=== PATIENT | female | born 1970 | race Caucasian/White ===

== ENCOUNTER 2016-10-14 12:10 | Emergency (ER) | payer OTHER ==
[2016-10-14] MEDS ORDERED: IOPAMIDOL 300 (61%) 150 ML VIAL IV ONE (12:11)
[2016-10-14] MEDS ORDERED: ONDANSETRON 4 MG/2ML 2 ML VIAL ONE (13:38)
[2016-10-14] MEDS ORDERED: LACTATED RINGERS 1,000 ML ONE (13:38)
[2016-10-14] MEDS ORDERED: MORPHINE SULFATE 4 MG/ML SYRINGE ONE (13:38)
[2016-10-14 13:51] LABS: SPECIFIC GRAVITY 1.025 (1.001-1.030); URINE APPEARANCE CLEAR; URINE BILIRUBIN NEGATIVE (NEGATIVE); URINE BLOOD 1+ (NEGATIVE); URINE COLOR DARK YELLOW; URINE GLUCOSE (UA) NEGATIVE (NEGATIVE); URINE LEUKOCYTE ESTERASE NEGATIVE (NEGATIVE); URINE NITRITE NEGATIVE (NEGATIVE); URINE PROTEIN NEGATIVE (NEGATIVE); URINE UROBILINOGEN NORMAL (0-1 mg/dl)
[2016-10-14 13:52] LABS: ABSOLUTE NEUTROPHIL COUNT 13.1 K/mm3 (1.8-7.7); BASO % 0.3 % (0.2-1.0); EOS % 0.1 % (0.9-2.9); HEMATOCRIT 40.7 % (37.0-47.0); HEMOGLOBIN 13.9 gm/l (12.0-16.0); IMM NEUT # 0.1 K/mm3 (0-0.2); IMM NEUT% 0.3 % (0-1); LYMPH # 0.7 (1.0-4.8); LYMPH % 4.8 % (15-45); MEAN CELL VOLUME 89.6 fl (81.0-99.0); MEAN CORPUSCULAR HEMOGLOBIN 30.6 pg (27.0-31.0); MEAN CORPUSCULAR HGB CONC 34.2 g/dl (33.0-37.0); MEAN PLATELET VOLUME 10.4 fl (7.4-10.4); MONO # 0.5 (0.0-0.8); MONO % 3.4 % (4-12); NEUT % 91.1 % (43-75); PLATELET COUNT 333 K/mm3 (130-400); RED CELL DISTRIBUTION WIDTH 11.8 % (11.5-14.5)
[2016-10-14 14:01] LABS: ALB/GLOB RATIO 1.4 (>1.0); CALCIUM 8.9 mg/dL (8.6-10.3)
[2016-10-14 14:04] LABS: URINE BACTERIA FEW; URINE WBC NEG /hpf
--- NOTE | 2016-10-14 14:27 | US ---
ABDOMINAL-LIMITED 10/14/2016 13:46 COMPARISON: None HISTORY: Epigastric pain and nausea since 07:00 today FINDINGS: Gall bladder: Normal, length 7.8 cm, all wall thickness 2.9 mm, without stones or sludge. Common hepatic duct: 2.9 mm. Common bile duct: 3.2 mm. IMPRESSION: 1. Normal study. The report was sent to the emergency department [facility] record system 10/14/2016 at 14:29
[2016-10-14 15:26] LABS: BAND 0 % (0-10); EOSINOPHIL 0 % (1-3); LYMPHOCYTE 9 % (15-45); MONOCYTE 3 % (4-12); NEUTROPHILS 88 % (43-75); TOTAL CELLS COUNTED 100
[2016-10-14 15:27] LABS: BASOPHIL 0 % (0-1); PLATELET ESTIMATE NORMAL (NORMAL)
--- NOTE | 2016-10-14 15:59 | CT ---
ABD/PELVIS W/ CON COMPARISON: None. HISTORY: Since 0700 today with patient having sudden onset of epigastric pain with nausea. Technique: Intravenous injection 125 mL Isovue 300. Using a [employer] Aqu[employer] [address] scanner, images were obtained from the diaphragm to the floor the pelvis. An automated dose reduction technique was used to minimize patient radiation dose. Dose information: CTDIvol (mGy): 27.50 DLP(mGycm): 1512.20 FINDINGS: Lung bases: Normal. Inferior mediastinum and heart: Normal. Liver: In the lateral segment of the right lobe, 5.6 mm cyst. Gallbladder:Normal. Bile ducts: Normal. Pancreas: Normal. Spleen: In the medial lower pole, 15 x 10 mm poorly enhancing lesion consistent with a hemangioma. Adrenal glands: Normal. Kidneys: In the right kidney, there are multiple parapelvic cysts and there is a 12 mm parenchymal cyst and a nonobstructing 3 Barrett calculus posterior lower pole. In the left kidney, there are multiple parapelvic cysts. Ureters: Normal Urinary bladder: Normal. Uterus and adnexa: Satisfactory position of intrauterine device. Blood vessels: Normal Lymph nodes: Normal Stomach: Small inguinal hernia. Duodenum: Normal Small intestine: Thickening of loops of the ileum. No obstruction. Appendix: Normal Colon: Normal Abdominal wall and supporting musculature: Small left inguinal hernia containing fat. Bones: Mild degenerative changes. IMPRESSION: Enteritis with thickening of loops of the ileum, suspicious for Crohn's disease or infectious enteritis. 2. Incidentally findings: Small inguinal hernia, cyst in the liver and bilateral renal parapelvic cysts, with nonobstructing calculus in the right kidney and a small probable hemangioma in the spleen. Small left inguinal hernia containing fat. Intrauterine device. The results were discussed with Jarvis Pereira M.D. 10/14/2016 at 15:56
[2016-10-14] MEDS ORDERED: HYDROMORPHONE HCL 0.5 MG/0.5 ML SYRINGE ONE (16:50)
== END 2016-10-14 18:19 | disposition home or self-care (01) ==
LOC: ED 12:10
DX: K52.9 Noninfective gastroenteritis and colitis, unspecified (principal)
CPT/HCPCS: 83690; 85025; 80053; 81001; 74177; 76705; 96375 ×2; 99284 ×2; 96374; 96361 ×3; J2270; J2405; J7120; Q9967; J1170